=== PATIENT | female | born 1980 | race African-American/Black ===

== ENCOUNTER 2016-12-29 17:53 | Emergency (ER) | payer BC ==
[~2016-12-29] VITALS: Ht 167.6 cm; Wt 74.4 kg
[2016-12-29 18:37] VITALS: BP_SYST 136
[2016-12-29 20:46] VITALS: BP_SYST 135
== END 2016-12-29 20:46 | disposition home or self-care (01) ==
LOC: SED 17:53
DX: S86.812A Strain of other muscle(s) and tendon(s) at lower leg level, left leg, initial encounter (principal); Z98.51 Tubal ligation status; X58.XXXA Exposure to other specified factors, initial encounter; Y93.01 Activity, walking, marching and hiking; Y92.89 Other specified places as the place of occurrence of the external cause; Y99.8 Other external cause status
CPT/HCPCS: 81025; 93971; 99284